=== PATIENT | female | born 1990 | race African-American/Black ===

== ENCOUNTER 2017-10-06 22:13 | Observation (INO) ==
[2017-10-06 22:36] LABS: Baso % (Auto) 0.3 % (0.0-2.0); Eos # (Auto) 0.1 th/mm3 (0.0-0.4); Eos % (Auto) 1.4 % (0.0-4.0); Hemoglobin 11.5 gm/dL (11.6-15.3); Lymph % (Auto) 31.8 % (9.0-44.0); Mean Corpuscular Volume 78.7 fL (80.0-100.0); Mean Platelet Volume 8.9 fL (7.0-11.0); Mono # (Auto) 0.4 th/mm3 (0.0-0.9); Mono % (Auto) 6.4 % (0.0-8.0); Neut # (Auto) 3.7 th/mm3 (1.8-7.7); Neut % (Auto) 60.1 % (16.0-70.0); Platelet Count 261 th/mm3 (150-450); Red Blood Count 4.44 mil/mm3 (4.00-5.30); Red Cell Distribution Width 14.9 % (11.6-17.2); White Blood Count 6.2 th/mm3 (4.0-11.0)
--- NOTE | 2017-10-06 22:39 | CT ---
EXAM DATE: 10/06/2017 10:32 PM EDT AGE/SEX: 27 years / Female INDICATIONS: Stroke alert; left numbness and right side headache. CLINICAL DATA: This is the patient's initial encounter. Patient reports that signs and symptoms have been present for 1 day and indicates a pain score of 5/10. MEDICAL/SURGICAL HISTORY: None. None. RADIATION DOSE: 39.01 CTDI (mGy) COMPARISON: No prior exams available for comparison. Report was called to Dr. Barraza at 10:35 PM. TECHNIQUE: CT of the head without contrast. Using automated exposure control and adjustment of the mA and/or kV according to patient size, radiation dose was kept as low as reasonably achievable to ob tain optimal diagnostic quality images. DICOM format image data is available electronically for revi ew and comparison. FINDINGS: Cerebrum: The ventricles are normal for age. No evidence of midline shift, mass lesion, hemorrhage or acute infarction. No extraaxial fluid collections are seen. Posterior Fossa: The cerebellum and brainstem are intact. The 4th ventricle is midline. The cerebe llopontine angle is unremarkable. Extracranial: The visualized portion of the orbits is intact. Skull: The calvaria is intact. No evidence of skull fracture. CONCLUSION: 1. Negative stroke alert CT brain. Electronically signed by: Raffy Mercado MD 10/06/2017 10:38 PM EDT
--- NOTE | 2017-10-06 22:45 | ED ---
HPI General Chief complaint: Stroke Alert Stated complaint: EVAC/Stroke Alert Time Seen by Provider: 10/06/17 22:26 History of Present Illness HPI narrative: 27-year-old female presents to the emergency department from home by EMS sport after being evaluated having had a syncopal episode just prior to arrival to the emergency department was reported no head injury neck injury or back injury. Per secondary english teacher report patient was already placed on stretcher prior to their arrival but reportedly with assistance walked a few steps to the stretcher with assistance by fire department personnel. Patient was reportedly cleaning and then had a syncopal episode. Patient was found lying on her left side complaining of right sided numbness and tingling affecting the right upper extremity the right side of the torso/trunk and the right lower extremity. Patient does not complain of any weakness of the upper extremity or lower extremity. Patient does complain of right-sided headache but denies neck pain or back pain. Left side is unaffected. No prior history of similar paresthesias. No report of migraines. Patient does take prescription Fen/Phen for weight loss 6 months. Patient does not take control pills. No known cardiac disease hypertension or dyslipidemia. Patient is not diabetic. Patient was transported in sinus rhythm. Patient here is awake and alert and oriented to person place time and events and able to relay that she does have a headache she does not have visual disturbance does not feel confused does not have difficulty with her speech does not have head pain but does have a headache does not have neck pain or back pain does complain of right sided numbness and tingling that is midline and rightward as well as feels normal on her left side left torso left upper extremity and left lower extremity feel normal while her right torso/trauma right upper extremity and right lower extremity have numbness and seen EMS was called at 2141 stroke alert was called in the [place] [address] at 22:22 Related Data Home Medications Medication Instructions Recorded Confirmed phentermine 37.5 mg PO DAILY 10/07/17 10/07/17 Allergies Allergy/AdvReac Type Severity Reaction Status Date / Time No Known Allergies AdvReac Unknown Uncoded 02/06/17 08:40 [facility] Medical History Medical History Hx of headache (Acute) Surgical History Surgical History Hx of section (Acute) Social History Social History Substance History: No History of Abuse Second Hand Smoke Exposure: Yes Smoking Status: Never smoker How Often Do You Have a Drink Containing Alcohol: Monthly or less Recent Travel in [place] within the Last 8 Weeks: No Recent Out of Country Travel within the Last 8 Weeks: No Course Initial Documented Vital Signs Temperature 98 F 10/06/17 22:15 Pulse Rate 97 H 10/06/17 22:15 Respiratory Rate 20 10/06/17 22:15 Blood Pressure 141/90 H 10/06/17 22:15 Pulse Oximetry 10 L 10/06/17 22:15 Last Documented Vital Signs Temperature 98 F 10/06/17 22:15 Pulse Rate 73 10/07/17 00:27 Respiratory Rate 20 10/07/17 00:28 Blood Pressure 128/80 10/07/17 00:27 Pulse Oximetry 98 10/06/17 22:30 NIH Stroke Scale NIH Stroke Scale Level of Consciousness: 0-Alert Orientation Questions: 0-Answers both correct Responds to Commands: 0-Both tasks correct Gaze Eye Movement: 0-Horizontal movement WNL Visual Burris: 0-No visual field defect Facial Movement: 0-Normal Motor Functions Arm LEFT: 0-No drift Motor Functions Arm RIGHT: 0-No drift Motor Functions Leg LEFT: 0-No drift Motor Functions Leg RIGHT: 0-No drift Limb Ataxia: 0-No ataxia Sensory Loss: 1-Mild sensory loss Best Language: 0-Normal Articulation: 0-Normal Extinction or Inattention Sensory: 0-Absent Total: 1 Medical Decision Making [facility] Narrative Medical decision making narrative: Stat call to neurologist Dr Pichardo --no tpa 22 :22 patient en route to [address] Radiologist called CT as negative @ 10:35 @ 10:51 patient sent back to CT for CT cervical spine @ 23:35 patient is symptomatically improved paresthesias are now limited to her digits of the right hand and right foot with persistent tingling that has lessened in intensity torso is no longer having any paresthesias or tingling upper arm and forearm are spared of any tingling or paresthesias and upper leg and lower leg of the right lower extremity are spared any paresthesias or tingling. Case discussed with on-call [place] GIL --obs Per Dr Pichardo MR normal --suspects migraine variant; patient is informed of imaging results and plan for observation admission with which she is agreeable Differential Diagnosis Differential Diagnosis: CVA, TIA, migraine variant, ICH, cervical spine injury, neuromuscular disorder, Medical Records Medical records reviewed: Yes I reviewed the patient's medical records. Lab Data Lab results reviewed: Yes I reviewed the patient's lab results. Result diagrams: 10/06/17 22:10 Lab Results 10/06/17 10/06/17 10/06/17 Range/Units 22:10 22:10 22:43 WBC 6.2 (4.0-11.0) th/mm3 RBC 4.44 (4.00-5.30) mil/mm3 Hgb 11.5 L (11.6-15.3) gm/dL POC Hgb (Calc) 11.2 L (11.6-15.3) g/dL Hct 35.0 (35.0-46.0) % POC Hct 33.0 L (35-46.0) % MCV 78.7 L (80.0-100.0) fL MCH 26.0 L (27.0-34.0) pg MCHC 33.0 (32.0-36.0) % RDW 14.9 (11.6-17.2) % Plt Count 261 (150-450) th/mm3 MPV 8.9 (7.0-11.0) fL Neut % (Auto) 60.1 (16.0-70.0) % Lymph % (Auto) 31.8 (9.0-44.0) % Wells % (Auto) 6.4 (0.0-8.0) % Eos % (Auto) 1.4 (0.0-4.0) % Baso % (Auto) 0.3 (0.0-2.0) % Neut # (Auto) 3.7 (1.8-7.7) th/mm3 Lymph # (Auto) 2.0 (1.0-4.8) th/mm3 Wells # (Auto) 0.4 (0.0-0.9) th/mm3 Eos # (Auto) 0.1 (0.0-0.4) th/mm3 Baso # (Auto) 0.0 (0.0-0.2) th/mm3 WBC Differential . Differential Comment Auto diff final PT 10.6 (9.8-11.6) sec INR 1.0 Ratio APTT 21.7 L (24.3-30.1) sec Fibrinogen 265 (227-377) mg/dL POC Sodium 140 (137-144) mmol/L POC Potassium 3.4 L (3.6-5.0) mmol/L POC Chloride 103 (102-111) mmol/L POC BUN 3 L (5-21) mg/dL POC Creatinine 0.8 (0.6-1.3) mg/dL POC Glucose 79 (68-110) mg/dL Total Creatine Kinase 169 (26-192) U/L Troponin I Less than 0.02 L (0.02-0.05) ng/mL Blood Type Blood Type Recheck Antibody Screen 10/06/17 Range/Units 22:43 WBC (4.0-11.0) th/mm3 RBC (4.00-5.30) mil/mm3 Hgb (11.6-15.3) gm/dL POC Hgb (Calc) (11.6-15.3) g/dL Hct (35.0-46.0) % POC Hct (35-46.0) % MCV (80.0-100.0) fL MCH (27.0-34.0) pg MCHC (32.0-36.0) % RDW (11.6-17.2) % Plt Count (150-450) th/mm3 MPV (7.0-11.0) fL Neut % (Auto) (16.0-70.0) % Lymph % (Auto) (9.0-44.0) % Wells % (Auto) (0.0-8.0) % Eos % (Auto) (0.0-4.0) % Baso % (Auto) (0.0-2.0) % Neut # (Auto) (1.8-7.7) th/mm3 Lymph # (Auto) (1.0-4.8) th/mm3 Wells # (Auto) (0.0-0.9) th/mm3 Eos # (Auto) (0.0-0.4) th/mm3 Baso # (Auto) (0.0-0.2) th/mm3 WBC Differential Differential Comment PT (9.8-11.6) sec INR Ratio APTT (24.3-30.1) sec Fibrinogen (227-377) mg/dL POC Sodium (137-144) mmol/L POC Potassium (3.6-5.0) mmol/L POC Chloride (102-111) mmol/L POC BUN (5-21) mg/dL POC Creatinine (0.6-1.3) mg/dL POC Glucose (68-110) mg/dL Total Creatine Kinase (26-192) U/L Troponin I (0.02-0.05) ng/mL Blood Type O Positive Blood Type Recheck Not needed Antibody Screen Negative Imaging Data Radiologist's impression: Chest X-Ray 10/06/17 22:22 CONCLUSION: The lungs are clear. Head CT 10/06/17 22:22 CONCLUSION: 1. Negative stroke alert CT brain. Head CTA 10/06/17 22:22 CONCLUSION: 1. Negative CTA of the lummi of [place] CTA 10/06/17 22:22 CONCLUSION: 1. Negative carotid CTA. Cervical Spine CT 10/06/17 22:49 CONCLUSION: 1. Straightening of the cervical lordosis without evidence of compression deformity or spondylolisthesis. 2. Presence or absence of disc disease cannot be assessed at C4-C7 due to patient's body habitus. Head MRI 10/06/17 22:59 CONCLUSION: 1. Unremarkable MRI of the brain. Negative for infarct. Findings discussed by telephone with Dr. Pichardo. ECG Data Interpretation: EKG normal sinus rhythm rate [address] elevation injury pattern or ectopy noted Discharge Plan Discharge Disposition Patient Disposition: 30 Still Patient Discharge Condition Condition: Stable Discharge Details Diagnosis: TIA (transient ischemic attack) Physicians Team ED Provider: Ashia Barraza Primary Care Provider: UNKNOWN, Attending Provider: Rufina Sarmiento Other Providers: Ever Hwang Status ED Status: Admitted Observation Patient
--- NOTE | 2017-10-06 22:56 | CT ---
EXAM DATE: 10/06/2017 10:43 PM EDT AGE/SEX: 27 years / Female INDICATIONS: Stroke alert; left numbness and right side headache. CLINICAL DATA: This is the patient's initial encounter. Patient reports that signs and symptoms have been present for 1 day and indicates a pain score of 6/10. MEDICAL/SURGICAL HISTORY: None. None. RADIATION DOSE: 28.51 CTDI (mGy) ; Combined studies COMPARISON: [facility], CTA NECK W CONTRAST W 3D, 10/06/2017. . TECHNIQUE: Volumetric scanning was performed using a multi-row detector CT scanner during bolus infu naomi of 100 ml Visipaque 320 (iodixanol) nonionic water-soluble contrast as a cumulative dose for mu ltiple exams. The data was post processed with a variety of visualization algorithms including full volume maximum intensity projection, multi-planar sliding thin slab reformation, curved planar refor mation, and surface rendering techniques. Using automated exposure control and adjustment of the mA and/or kV according to patient size, radiation dose was kept as low as reasonably achievable to obtai n optimal diagnostic quality images. DICOM format image data is available electronically for review and comparison. FINDINGS: There is excellent visualization of the major intracranial arteries out to the second-order branch ve ssels. There is no evidence for aneurysm, vessel truncation or stenosis, and no evidence for vascula r malformation. CONCLUSION: 1. Negative CTA of the [place] Electronically signed by: Raffy Mercado MD 10/06/2017 10:55 PM EDT
[2017-10-06 23:00] LABS: Creatine Kinase 169 U/L (26-192)
--- NOTE | 2017-10-06 23:03 | XR ---
EXAM DATE: 10/06/2017 10:45 PM EDT AGE/SEX: 27 years / Female INDICATIONS: . Stoke alert CLINICAL DATA: This is the patient's initial encounter. Patient reports that signs and symptoms have been present for 1 day and indicates a pain score of Nonresponsive. MEDICAL/SURGICAL HISTORY: Non-responsive. Non-responsive. COMPARISON: [facility] [place]ST SINGLE AP, 04/14/2012. . FINDINGS: A single AP view of the chest demonstrates the lungs to be symmetrically aerated without evidence of mass, infiltrate or effusion. No evidence of pneumothorax. The cardiomediastinal contours are unremar kable. Osseous structures are intact. CONCLUSION: The lungs are clear. Electronically signed by: Raffy Mercado MD 10/06/2017 11:01 PM EDT
--- NOTE | 2017-10-06 23:11 | CT ---
EXAM DATE: 10/06/2017 10:51 PM EDT AGE/SEX: 27 years / Female INDICATIONS: Stroke alert; left numbness and right side headache. CLINICAL DATA: This is the patient's initial encounter. Patient reports that signs and symptoms have been present for 1 day and indicates a pain score of 6/10. MEDICAL/SURGICAL HISTORY: None. None. RADIATION DOSE: 28.51 CTDI (mGy) ; Combined studies COMPARISON: No prior exams available for comparison. TECHNIQUE: Volumetric scanning was performed using a multirow detector CT scanner during bolus infus ion of 100 ml Visipaque 320 (iodixanol) nonionic water-soluble contrast as a cumulative dose for mul tiple exams. The data was postprocessed with a variety of visualization algorithms including full-v olume maximum intensity projection, multiplanar sliding thin-slab reformation, curved-planar reformat ion, and surface-rendering techniques. Using automated exposure control and adjustment of the mA and /or kV according to patient size, radiation dose was kept as low as reasonably achievable to obtain o ptimal diagnostic quality images. DICOM format image data is available electronically for review and comparison. FINDINGS: Aortic Arch: There is a three-vessel origin of the great vessels from the aorta. No evidence of ost ial narrowing Right Carotid: The common carotid artery is intact. The carotid bulb has a normal configuration wit hout ulceration or narrowing. The internal carotid artery lumen is smooth without stenosis. The ext ernal carotid artery is intact. Left Carotid: The common carotid artery is intact. The carotid bulb has a normal configuration with out ulceration or narrowing. The internal carotid artery lumen is smooth without stenosis. The exte rnal carotid artery is intact. Vertebrals: The left vertebral artery is larger than the right; both vessels are patent. No stenoti c lesions are seen. Elevated flow velocities and ICA/CCA ratios have been found to correlate with increased degrees of ve ssel stenosis, calculated as percentage of diameter relative to a normal segment of distal ICA/CCA. CONCLUSION: 1. Negative carotid CTA. Electronically signed by: Raffy Mercado MD 10/06/2017 11:09 PM EDT
[2017-10-06] MEDS ORDERED: Aspirin 325 MG Tablet PO ONE (23:13)
[2017-10-06] MEDS: Sod Chloride 0.9% Inj 1,000 ML IV.CONT SCH (23:15)
--- NOTE | 2017-10-06 23:15 | CT ---
EXAM DATE: 10/06/2017 11:05 PM EDT AGE/SEX: 27 years / Female INDICATIONS: Trauma; fall. CLINICAL DATA: This is the patient's initial encounter. Patient reports that signs and symptoms have been present for 1 day and indicates a pain score of 5/10. MEDICAL/SURGICAL HISTORY: None. None. RADIATION DOSE: . CTDI (mGy) ; Reconstructed from previous dataset, no dose COMPARISON: No prior exams available for comparison. TECHNIQUE: Contiguous axial images were obtained using helical multi-row detector technique. The vo lumetric data was post-processed with multiplanar reconstruction in oblique axial, sagittal and coron al planes. Using automated exposure control and adjustment of the mA and/or kV according to patient s ize, radiation dose was kept as low as reasonably achievable to obtain optimal diagnostic quality cyndy ges. DICOM format image data is available electronically for review and comparison. FINDINGS: There is straightening of the cervical lordosis. Vertebral body height is maintained. Image quality i s compromised by patient's body habitus. No compression deformities seen. No evidence of spondylolist hesis. The atlantoaxial articulation is intact. No fractures seen. The neural foramina are patent. No significant osteophytes. CONCLUSION: 1. Straightening of the cervical lordosis without evidence of compression deformity or spondylolisth esis. 2. Presence or absence of disc disease cannot be assessed at C4-C7 due to patient's body habitus. Electronically signed by: Raffy Mercado MD 10/06/2017 11:14 PM EDT
[2017-10-06 23:28] LABS: Activated Partial Thrombo Time 21.7 sec (24.3-30.1); Prothrombin Time 10.6 sec (9.8-11.6)
--- NOTE | 2017-10-07 00:15 | MR ---
EXAM DATE: 10/06/2017 11:56 PM EDT AGE/SEX: 27 years / Female INDICATIONS: Stroke. Right sided weakness. CLINICAL DATA: This is the patient's initial encounter. Patient reports that signs and symptoms have been present for 1 day and indicates a pain score of 6/10. MEDICAL/SURGICAL HISTORY: None. section. COMPARISON: No prior exams available for comparison. TECHNIQUE: Multiplanar, multisequence examination of the brain was performed without contrast. FINDINGS: There is no intracranial mass. No hemorrhage. No midline shift. No hydrocephalus. No recent infarct is identified on the diffusion weighted images. No sellar mass. No abnormal extra-a xial fluid. CONCLUSION: 1. Unremarkable MRI of the brain. Negative for infarct. Findings discussed by telephone with Dr. Jed davis. Electronically signed by: Herb Forrester MD 10/07/2017 12:14 AM EDT
[2017-10-07 01:21] LABS: Bilirubin,Urine Negative (Negative); Clarity,Urine Clear (Clear); Color,Urine Yellow (Yellw/Straw); Glucose,Urine (UA) Negative (Negative); Leukocyte Esterase,Urine Small (Negative); Mucus,Urine Few /lpf (Occasional); Nitrite,Urine Negative (Negative); Specific Gravity,Urine 1.045 (1.002-1.035); Squamous Epithelial Cell,Urine 5 /hpf (0-5)
[2017-10-07] MEDS ORDERED: Temazepam 15 MG Capsule PO PRN (01:52)
[2017-10-07] MEDS ORDERED: Acetaminophen 325 MG Tablet PO PRN (01:52)
[2017-10-07] MEDS ORDERED: Bisacodyl 10 MG Supp RECTAL PRN (01:52)
[2017-10-07] MEDS ORDERED: Dextrose 50% in Water 50 ML Vial IV.PUSH PRN (01:55)
[2017-10-07] MEDS: Insulin NovoLOG Aspart Correctional Sugar Inj SQ SCH ×3 (02:25→12:45)
--- NOTE | 2017-10-07 02:58 | P.HP ---
History of Present Illness Service: [facility] Primary Care Physician: UNKNOWN Chief Complaint: Unresponsiveness History of Present Illness: 27-year-old female with a past medical history significant for prediabetes presents to the emergency department after suffering a syncopal event. The event was unwitnessed and the patient was found by her brother on the kitchen floor. It is unclear if there was any seizure-like activity prior to her being unresponsive. The patient's mother reports that the patient was unresponsive for approximately 5 minutes and then she regained consciousness. The patient has no memory of the event. Following the event, the patient complained of right-sided chest pain with numbness of her right upper and lower extremities. Since her arrival in the emergency department the numbness has slowly subsided and is now only present in the fingers of her right hand. Her chest pain has completely resolved. The patient denies any shortness of breath. No abdominal pain. No nausea/vomiting/diarrhea. No fevers/chills. Inpatient Certification: I certify that the inpatient services were ordered in accordance with Medicare regulations governing the order. This includes certification that hospital inpatient services are reasonable and necessary and in the case of services not specified as inpatient-only under 42 CFR 419.22(n), that they are appropriately provided as inpatient services in accordance to with the 2-midnight benchmark under 43 CFR 412.3(e) Review of Systems All other systems reviewed negative except as stated in HPI PMFSH - History History Provided By: Patient - Medical History Medical History: Medical History (Last Updated 10/06/17 @ 23:11 by Fabiola Hatch) Hx of headache - Surgical History Surgical History: Surgical History (Last Updated 10/06/17 @ 23:11 by Fabiola Hatch) Hx of section - Tobacco History Second Hand Smoke Exposure: Yes Smoking Status: Never smoker - Alcohol History How Often Do You Have a Drink Containing Alcohol: Monthly or less - Substance Use History Substance History: No History of Abuse - Travel History Recent Travel in the [place] Within the Last 8 Weeks: No Recent Travel Out of the Country Within the Last 8 Weeks: No - Immunization History Tetanus Immunization: <5 Years Hx Influenza Vaccine This Season: Yes Medications and Allergies Active Medications: Active Medications Acetaminophen (Tylenol) 650 mg PO Q4H PRN PRN Reason: Temp > 100.4 Al Hydroxide/Mg Hydroxide (Milk Of Magnesia Liq) 30 ml PO Q12H PRN PRN Reason: Mild Constipation Bisacodyl (Dulcolax Supp) 10 mg RECTAL DAILY PRN PRN Reason: SEVERE CONSITIPATION Dextrose (D50w Vial) 50 ml IV.PUSH UNSCH PRN PRN Reason: PER HYPOGLYCEMIA PROTOCOL Glucagon (Glucagon Inj) 1 mg OTHER PRN PRN PRN Reason: for Hypoglycemia Protocol Sodium Chloride (Ns Inj) 1,000 mls @ 70 mls/hr IV.CONT .[id number] NAIF Last Admin: 10/06/17 23:15 Dose: 70 mls/hr Insulin Aspart (Novolog Insulin Correctional Sugar Inj) 0 unit SQ ACHS AND 3AM NAIF; Protocol Last Admin: 10/07/17 02:25 Dose: Not Given Lactulose (Lactulose Liq) 30 ml PO DAILY PRN PRN Reason: SEVERE CONSITIPATION Ondansetron HCl (Zofran Inj) 4 mg IV.PUSH Q6H PRN PRN Reason: NAUSEA OR VOMITING Senna/Docusate Sodium (Raysa-Colace) 1 tab PO BID [facility] Sennosides (Senokot) 17.2 mg PO Q12H PRN PRN Reason: Moderate Constipation Temazepam (Restoril) 15 mg PO HS PRN PRN Reason: INSOMNIA Allergies Allergy/AdvReac Type Severity Reaction Status Date / Time No Known Allergies AdvReac Unknown Uncoded 02/06/17 08:40 Home Medications Medication Instructions Recorded Confirmed Type phentermine 37.5 mg PO DAILY 10/07/17 10/07/17 History Exam Vital signs: Vital Signs 10/06/17 22:15 10/06/17 22:30 10/07/17 00:27 Temperature 98 F Pulse Rate 97 H 91 H 73 Respiratory Rate 20 20 20 Blood Pressure 141/90 H 137/76 128/80 Pulse Oximetry 10 L 98 10/07/17 00:28 10/07/17 00:59 10/07/17 02:20 Temperature 97.3 F L 98.6 F Pulse Rate 74 78 Respiratory Rate 20 16 20 Blood Pressure 118/71 121/75 Pulse Oximetry 100 100 Intake & Output 10/06/17 10/06/17 10/07/17 06:59 18:59 06:59 Weight 121.8 kg Narrative: Gen.: No acute distress Head: Normocephalic. Atraumatic. EENT: Pupils equal round and reactive to light. Nose without drainage. Airway intact. Throat without injection. Cardiovascular: Regular rate and rhythm. No murmurs, rubs or gallops. Respiratory: Lungs clear to auscultation bilaterally. No wheezes or rhonchi. Abdomen: Soft, nontender, nondistended. No peritoneal signs. Musculoskeletal: No gross deformities. No edema. Skin: No obvious rashes or erythema. Neuro: Cranial nerves II through XII intact. Strength 5/5 throughout. Patient reports numbness and tingling on the fingers of her right hand. Psych: Appropriate mood and affect Results - Labs CBC & Chem 7: 10/06/17 22:10 Labs: Laboratory Results - last 24 hr 10/06/17 10/06/17 10/06/17 22:10 22:10 22:43 WBC 6.2 RBC 4.44 Hgb 11.5 L POC Hgb (Calc) 11.2 L Hct 35.0 POC Hct 33.0 L MCV 78.7 L MCH 26.0 L MCHC 33.0 RDW 14.9 Plt Count 261 MPV 8.9 Neut % (Auto) 60.1 Lymph % (Auto) 31.8 [place] % (Auto) 6.4 Eos % (Auto) 1.4 Baso % (Auto) 0.3 Neut # (Auto) 3.7 Lymph # (Auto) 2.0 [place] # (Auto) 0.4 Eos # (Auto) 0.1 Baso # (Auto) 0.0 WBC Differential . Differential Comment Auto diff final PT 10.6 INR 1.0 APTT 21.7 L Fibrinogen 265 POC Sodium 140 POC Potassium 3.4 L POC Chloride 103 POC BUN 3 L POC Creatinine 0.8 POC Glucose 79 Total Creatine Kinase 169 Troponin I Less than 0.02 L Urine Color Urine Clarity Urine pH Ur Specific [place] Urine Protein Urine Glucose (UA) Urine Ketones Urine Occult Blood Urine Nitrate Urine Bilirubin Urine Urobilinogen Ur Leukocyte Esterase Urine RBC Urine WBC Ur Squamous Epith Cells Urine Mucus Micro UA Comment Urine Culture Comments Blood Type Blood Type Recheck Antibody Screen 10/06/17 10/07/17 22:43 00:45 WBC RBC Hgb POC Hgb (Calc) Hct POC Hct MCV MCH MCHC RDW Plt Count MPV Neut % (Auto) Lymph % (Auto) [place] % (Auto) Eos % (Auto) Baso % (Auto) Neut # (Auto) Lymph # (Auto) [place] # (Auto) Eos # (Auto) Baso # (Auto) WBC Differential Differential Comment PT INR APTT Fibrinogen POC Sodium POC Potassium POC Chloride POC BUN POC Creatinine POC Glucose Total Creatine Kinase Troponin I Urine Color Yellow Urine Clarity Clear Urine pH 5.0 Ur Specific [place] 1.045 H Urine Protein Negative Urine Glucose (UA) Negative Urine Ketones Negative Urine Occult Blood Large H Urine Nitrate Negative Urine Bilirubin Negative Urine Urobilinogen Less than 2 Ur Leukocyte Esterase Small H Urine RBC 3 Urine WBC 5 Ur Squamous Epith Cells 5 Urine Mucus Few H Micro UA Comment Culture not ind Urine Culture Comments Culture not ind Blood Type O Positive Blood Type Recheck Not needed Antibody Screen Negative - Imaging Impressions Chest X-Ray 10/06/17 22:22 CONCLUSION: The lungs are clear. Head CT 10/06/17 22:22 CONCLUSION: 1. Negative stroke alert CT brain. Head CTA 10/06/17 22:22 CONCLUSION: 1. Negative CTA of the [place] CTA 10/06/17 22:22 CONCLUSION: 1. Negative carotid CTA. Cervical Spine CT 10/06/17 22:49 CONCLUSION: 1. Straightening of the cervical lordosis without evidence of compression deformity or spondylolisthesis. 2. Presence or absence of disc disease cannot be assessed at C4-C7 due to patient's body habitus. Head MRI 10/06/17 22:59 CONCLUSION: 1. Unremarkable MRI of the brain. Negative for infarct. Findings discussed by telephone with Dr. Pichardo. Jarred VTE Risk Assessment Caprini VTE Risk Assessment: No/Low Risk (score <= 1) Caprini Risk Assessment Model: Point Value = 1 Point Value = 2 Point Value = 3 Point Value = 5 Age 41-60 Minor surgery BMI > 25 kg/m2 Swollen legs Varicose veins or History of unexplained or recurrent spontaneous Oral contraceptives or hormone replacement Sepsis (< 1 month) Serious lung disease, including pneumonia (< 1 month) Abnormal pulmonary function Acute myocardial infarction Congestive heart failure (< 1 month) History of inflammatory bowel disease Medical patient at bed rest Age 61-74 Arthroscopic surgery Major open surgery (> 45 min) Laparoscopic surgery (> 45 min) Malignancy Confined to bed (> 72 hours) Immobilizing plaster cast Central venous access Age >= 75 History of VTE Family history of VTE Factor V Leiden Prothrombin [id number] Lupus anticoagulant Anticardiolipin antibodies Elevated serum homocysteine Heparin-induced thrombocytopenia Other congenital or acquired thrombophilia Stroke (< 1 month) Elective arthroplasty Hip, pelvis, or leg fracture Acute spinal cord injury (< 1 month) Prophylaxis Regimen: Total Risk Factor Score Risk Level Prophylaxis Regimen 0-1 Low Early ambulation 2 Moderate Order ONE of the following: *Sequential Compression Device (SCD) *Heparin 5000 units SQ BID 3-4 Higher Order ONE of the following medications: *Heparin 5000 units SQ TID *Enoxaparin/Lovenox 40 mg SQ daily (WT < 150 kg, CrCl > 30 mL/min) *Enoxaparin/Lovenox 30 mg SQ daily (WT < 150 kg, CrCl > 10-29 mL/min) *Enoxaparin/Lovenox 30 mg SQ BID (WT < 150 kg, CrCl > 30 mL/min) AND/OR *Sequential Compression Device (SCD) 5 or more Highest Order ONE of the following medications: *Heparin 5000 units SQ TID (Preferred with Epidurals) *Enoxaparin/Lovenox 40 mg SQ daily (WT < 150 kg, CrCl > 30 mL/min) *Enoxaparin/Lovenox 30 mg SQ daily (WT < 150 kg, CrCl > 10-29 mL/min) *Enoxaparin/Lovenox 30 mg SQ BID (WT < 150 kg, CrCl > 30 mL/min) AND *Sequential Compression Device (SCD) Assessment and Plan - Plan Assessment/plan: 1. Syncope/? seizure/? TIA Head CT, head MRI, head and neck CTA and cervical spine CT all negative for acute process Neurology consulted, appreciate recommendations Cannot rule out seizure activity, EEG pending Echo pending 2. Prediabetes Sliding-scale insulin Monitor blood glucose FEN N.p.o. Electrolytes: Monitor and replete as needed NS at 70 cc/hour
[2017-10-07 06:27] LABS: Creatine Kinase 129 U/L (26-192)
[2017-10-07] MEDS: Senna/Docusate Sodium 8.6/50 MG Tablet PO SCH (08:05)
[2017-10-07 12:16] LABS: Creatine Kinase 153 U/L (26-192)
--- NOTE | 2017-10-07 14:01 | MB ---
cc: Jourdan Pichardo MD, PhD DATE: 10/07/2017 REASON FOR CONSULTATION: Stroke alert. HISTORY OF PRESENT ILLNESS: Ms. Farnsworth is a very pleasant 27-year-old female who yesterday had an episode where she lost consciousness with a syncopal episode. No seizure-like activity was noted. There was no injury to her head or neck. When she awoke, she had a right-sided severe headache and she noted numbness and tingling in the right side of her body involving the arm, torso and leg, but not the face. There were no motor deficits. She had no speech changes. She does not take control pills or any other medication except for Phen-Fen, which she has been taking for 6 months for weight loss. Stroke alert was called yesterday evening. I spoke with Dr. Barraza. CT of the brain was negative. CT angiogram of the head and neck was also normal. The patient was improving with her symptoms, again had no motor deficits at all, just numbness which was improving. We did an MRI of the brain last night, which was normal with no sign of acute stroke. I recommended against IV TPA given the fact that she had only sensory deficits, there is no definite stroke on the MRI, and she was showing rapid improvement. She has continued to improve. At the present time notices only numbness in her hand and right foot. She has no prior history of stroke. No history of migraine. PAST MEDICAL HISTORY: Otherwise unremarkable. CURRENT MEDICATIONS: 1. Tylenol. 2. Dulcolax. 3. Lactulose. 4. Zofran p.r.n. 5. Senokot. 6. Restoril. 7. Aspirin was given in the ER last night 325 mg. NEUROLOGICAL EXAMINATION: VITAL SIGNS: Blood pressure is 128/83, pulse is 80, respiratory rate is 18, temperature 98 degrees. HIGHER CORTICAL FUNCTIONS: Normal. CRANIAL NERVES: 2-12 are normal. MOTOR EXAM: She has got 5/5 strength of all groups in both upper and lower extremities. There is no drift. Fine motor skills are normal. Reflexes are symmetric. SENSORY EXAM: Diminished distally in the right arm, mainly at the forearm and wrist area, to soft touch as well as the distal right lower extremity. IMAGING STUDIES: As noted above. LABORATORY DATA: White count of 6200; hemoglobin 11.5; hematocrit 35%; platelet count is 261,000. PT 10.6, INR 1, aPTT 21.7. Sodium is 140, potassium 3.4, chloride 103, BUN is 3, creatinine 0.8, glucose 79. CPK 169. ASSESSMENT: Transient right-sided numbness, which is improving. There is no sign of stroke on the MRI. This could be a migraine variant which I suspect it most likely is. Rule out transient ischemic attack. Rule out cervical spondylosis with cord involvement. RECOMMENDATION: We will proceed with an MRI of the cervical spine. Also, echocardiogram. Check labs for hypercoagulable state. Consider TERRA. I also recommend that she stop the Phen-Fen. Jourdan Pichardo MD, PhD JUVENAL/MELQUIADES , 01:32 PM , 02:00 PM
[2017-10-07] MEDS: Sod Chloride 0.9% Inj 1,000 ML IV.CONT SCH (16:08)
--- NOTE | 2017-10-07 16:15 | MB ---
cc: Todd Sloan MD DATE: 10/07/2017 HISTORY OF PRESENT ILLNESS: Lili is a 19-year-old lady. She was admitted after having a syncopal event with no prodrome. She has been evaluated by Dr. Pichardo was recommended TERRA. The patient currently denies chest pain, fevers, chills, cough, GI or bleeding, PND, orthopnea. She did have syncope and dizziness. PAST MEDICAL HISTORY: As per History of Present Illness. ALLERGIES: NONE. SOCIAL HISTORY: Denies tobacco use, rarely drinks alcohol. MEDICATIONS: Aspirin 325 daily. PHYSICAL EXAMINATION: VITAL SIGNS: Temperature 98.6, pulse 78, blood pressure 121/75, respiratory rate 20. GENERAL: She is alert and oriented x3, in no acute distress. NECK: Supple. No JVD. No bruit. CARDIOVASCULAR: S1, S2. No murmurs, rubs, gallops. LUNGS: Clear to auscultation bilaterally. ABDOMEN: Soft, nontender, nondistended with positive bowel sounds. EXTREMITIES: No lower extremity edema. EKG: Normal sinus rhythm at 82 beats per minute, otherwise normal. IMAGING STUDIES: Chest x-ray: Lungs are clear. Head CT: Negative for stroke. CT brain, head CTA: Negative CT of the [place] CTA: Negative carotid CTA. Cervical spine CT: Straightening of the cervical lordosis without evidence of compression deformity or spondylolisthesis. The presence or absence of disk disease cannot be assessed at C4-7 due to the patient's body habitus. Head MRI unremarkable. MRI of the brain negative for infarct. LABORATORY DATA: White count is 6.2, hemoglobin 11.5, hematocrit 35.0, platelet count 261. INR 1.0. Sodium 140, potassium 3.4, BUN 3, creatinine 0.8. Troponin less than 0.02 x3. DIAGNOSES: 1. Syncope with no prodrome. The patient has no contraindications to transesophageal echocardiogram at the current time. PLAN: I will plan to try to schedule this tomorrow, 10/08/2017. Todd Sloan MD AWAyan/SB , 03:53 PM , 04:13 PM
--- NOTE | 2017-10-07 20:53 | ECG ---
Date Performed: 10/06/2017 Time Performed: 22:20:37 PTAGE: 27 years EKG: Sinus rhythm POSSIBLE LEFT ATRIAL ENLARGEMENT BORDERLINE ECG NO PREVIOUS TRACING DOCTOR: Jason Bahena Interpretating Date/Time 10/07/2017 20:51:14
--- NOTE | 2017-10-07 21:21 | MG ---
cc: Ever Hwang MD, Mandeep MD EEG NUMBER [id number] Low-amplitude 10-20 microvolt beta activity noted in the background. Slow eye movements suggestive of drowsy state. Frontal slightly sharply contoured waveforms noted on epoch 22. Temporal sharp transients occurring in rhythmic fashion suggestive of EKG artifact. There was a high amplitude 3-4 Hz paroxysmal theta activity occurring, disorganized asynchronous background at times. Good EEG variability reactivity. Limited driving with photic stimulation. INTERPRETATION: Very mild encephalopathy, nonspecific changes in sleep state. Clinical correlation. MD HODAN Hanson/ , 09:05 PM , 09:20 PM
[2017-10-08 04:48] LABS: Baso % (Auto) 0.3 % (0.0-2.0); Eos # (Auto) 0.1 th/mm3 (0.0-0.4); Eos % (Auto) 3.2 % (0.0-4.0); Hematocrit 33.5 % (35.0-46.0); Hemoglobin 11.1 gm/dL (11.6-15.3); Lymph # (Auto) 1.6 th/mm3 (1.0-4.8); Lymph % (Auto) 34.7 % (9.0-44.0); Mean Corpuscular HGB Conc 33.2 % (32.0-36.0); Mean Corpuscular Hemoglobin 26.3 pg (27.0-34.0); Mean Corpuscular Volume 79.2 fL (80.0-100.0); Mean Platelet Volume 8.9 fL (7.0-11.0); Mono # (Auto) 0.4 th/mm3 (0.0-0.9); Mono % (Auto) 8.7 % (0.0-8.0); Neut # (Auto) 2.4 th/mm3 (1.8-7.7); Neut % (Auto) 53.1 % (16.0-70.0); Platelet Count 245 th/mm3 (150-450); Red Blood Count 4.22 mil/mm3 (4.00-5.30); White Blood Count 4.6 th/mm3 (4.0-11.0)
[2017-10-08] MEDS: Senna/Docusate Sodium 8.6/50 MG Tablet PO SCH ×3 (04:59→22:02)
[2017-10-08] MEDS: Sod Chloride 0.9% Inj 1,000 ML IV.CONT SCH ×2 (04:59→22:02)
[2017-10-08 05:08] LABS: Anion Gap 9 meq/L (5-15); Blood Urea Nitrogen 7 mg/dL (7-18); Calcium 8.7 mg/dL (8.5-10.1); Carbon Dioxide 25.3 meq/L (21.0-32.0); Chloride 108 meq/L (98-107); Glomerular Filtration Rate Greater Than 89 mL/min (>89); Glucose,Random 90 mg/dL (74-106); Potassium 3.7 meq/L (3.5-5.1); Sodium 142 meq/L (136-145)
--- NOTE | 2017-10-08 12:48 | P.PNCA ---
Subjective Interval history: asleep in nad Physical Exam Vital signs: Vital Signs 10/07/17 15:30 10/07/17 16:00 10/07/17 20:00 Temperature 98.6 F 98.1 F Pulse Rate 80 79 85 Respiratory Rate 20 16 16 Blood Pressure 117/74 120/68 125/67 Pulse Oximetry 100 100 100 10/07/17 23:46 10/08/17 04:00 10/08/17 07:29 Temperature 98.1 F 98.5 F 98.0 F Pulse Rate 73 78 62 Respiratory Rate 18 17 14 Blood Pressure 124/78 95/58 L 130/67 Pulse Oximetry 99 98 100 10/08/17 11:47 Temperature 98.1 F Pulse Rate 69 Respiratory Rate 14 Blood Pressure 124/77 Pulse Oximetry 100 Intake & Output 10/07/17 10/08/17 10/08/17 18:59 06:59 18:59 Intake Total 1000 / 1000 800 / 800 Balance 1000 / 1000 800 / 800 Weight 121 kg Intake: IV 1000 / 1000 NS Inj 1,000 ML @ 70 mls/hr IV. 1000 / 1000 CONT .[id number] [facility] Rx#:[id number] Oral 800 / 800 Other: # Voids 1 2 Date of Last Bowel Movement 10/06/17 10/06/17 Weight On Admission 121 kg Assessment and Plan - Assessment (1) TIA (transient ischemic attack) Code(s): G45.9 - Transient cerebral ischemic attack, unspecified Status: Acute - Attending Attestation 1.) TIA - unable to schedule TERRA today, will re attempt 10/09/17, d/w patient and nurse (1) TIA (transient ischemic attack) Qualifiers: Transient cerebral ischemia type: unspecified Qualified Code(s): G45.9 - Transient cerebral ischemic attack, unspecified
[2017-10-08] MEDS: Aspirin 325 MG Tablet PO SCH (13:24)
--- NOTE | 2017-10-08 16:23 | P.PNIM ---
Subjective Interval history: Patient denies any chest pain shortness of breath. Says she still feels little lightheaded when she stands up. Physical Exam Vital signs: Vital Signs 10/07/17 20:00 10/07/17 23:46 10/08/17 04:00 Temperature 98.1 F 98.5 F Pulse Rate 85 73 78 Respiratory Rate 16 18 17 Blood Pressure 125/67 124/78 95/58 L Pulse Oximetry 100 99 98 10/08/17 07:29 10/08/17 11:47 10/08/17 16:00 Temperature 98.0 F 98.1 F 97.9 F Pulse Rate 62 69 72 Respiratory Rate 14 14 14 Blood Pressure 130/67 124/77 119/77 Pulse Oximetry 100 100 100 Intake & Output 10/07/17 10/08/17 10/08/17 18:59 06:59 18:59 Intake Total 1000 / 1000 800 / 800 800 / 800 Balance 1000 / 1000 800 / 800 800 / 800 Weight 121 kg Intake: IV 1000 / 1000 800 / 800 NS Inj 1,000 ML @ 70 mls/hr IV. 1000 / 1000 800 / 800 CONT .[id number] [facility] Rx#:[id number] Oral 800 / 800 Other: # Voids 1 2 Date of Last Bowel Movement 10/06/17 10/06/17 10/06/17 Weight On Admission 121 kg Narrative: GENERAL: She is sitting in bed. Appears comfortable. Obese. SKIN: Warm and dry. HEAD: Normocephalic. EYES: No scleral icterus. No injection or drainage. NECK: Supple, trachea midline. No JVD or lymphadenopathy. CARDIOVASCULAR: Regular rate and rhythm without murmurs, gallops, or rubs. RESPIRATORY: Breath sounds equal bilaterally. No accessory muscle use. GASTROINTESTINAL: Abdomen soft, non-tender, nondistended. MUSCULOSKELETAL: No cyanosis, or edema. BACK: Nontender without obvious deformity. No CVA tenderness. Results - Labs CBC & Chem 7: 10/08/17 04:11 10/08/17 04:11 Laboratory Results - last 24 hr 10/08/17 10/08/17 10/08/17 04:11 04:11 06:19 WBC 4.6 RBC 4.22 Hgb 11.1 L Hct 33.5 L MCV 79.2 L MCH 26.3 L MCHC 33.2 RDW 15.0 Plt Count 245 MPV 8.9 Neut % (Auto) 53.1 Lymph % (Auto) 34.7 [place] % (Auto) 8.7 H Eos % (Auto) 3.2 Baso % (Auto) 0.3 Neut # (Auto) 2.4 Lymph # (Auto) 1.6 [place] # (Auto) 0.4 Eos # (Auto) 0.1 Baso # (Auto) 0.0 WBC Differential . Differential Comment Auto diff final Sodium 142 Potassium 3.7 Chloride 108 H Carbon Dioxide 25.3 Anion Gap 9 BUN 7 Creatinine 0.66 Estimated GFR Greater than 89 POC Glucose 89 Random Glucose 90 Calcium 8.7 Assessment and Plan - Plan //Syncope/? seizure/? TIA Head CT, head MRI, head and neck CTA and cervical spine CT all negative for acute process Neurology consulted, appreciate recommendations Cannot rule out seizure activity, EEG pending = We will check morning cortisol. Echo pendingdelayed today. Will be done tomorrow. Neurology and cardiology following. //Prediabetes Sliding-scale insulin Monitor blood glucose Discharge Planning: Pending cardiology and neurology clearance.
--- NOTE | 2017-10-08 17:37 | P.PNNEU ---
Subjective Subjective Comments: No acute events reported Still numb in right hand, but improving. No longer numb right leg Active Medications: Active Medications Acetaminophen (Tylenol) 650 mg PO Q4H PRN PRN Reason: Temp > 100.4 Al Hydroxide/Mg Hydroxide (Milk Of Magnesia Liq) 30 ml PO Q12H PRN PRN Reason: Mild Constipation Aspirin (Aspirin) 325 mg PO DAILY [facility] Last Admin: 10/08/17 13:24 Dose: 325 mg Bisacodyl (Dulcolax Supp) 10 mg RECTAL DAILY PRN PRN Reason: SEVERE CONSITIPATION Dextrose (D50w Vial) 50 ml IV.PUSH UNSCH PRN PRN Reason: PER HYPOGLYCEMIA PROTOCOL Glucagon (Glucagon Inj) 1 mg OTHER PRN PRN PRN Reason: for Hypoglycemia Protocol Sodium Chloride (Ns Inj) 1,000 mls @ 70 mls/hr IV.CONT .[id number] [facility] Last Infusion: 10/08/17 13:25 Dose: 0 mls/hr Lactulose (Lactulose Liq) 30 ml PO DAILY PRN PRN Reason: SEVERE CONSITIPATION Ondansetron HCl (Zofran Inj) 4 mg IV.PUSH Q6H PRN PRN Reason: NAUSEA OR VOMITING Senna/Docusate Sodium (Raysa-Colace) 1 tab PO BID [facility] Last Admin: 10/08/17 13:18 Dose: Not Given Sennosides (Senokot) 17.2 mg PO Q12H PRN PRN Reason: Moderate Constipation Temazepam (Restoril) 15 mg PO HS PRN PRN Reason: INSOMNIA Allergies/Adverse Reactions: Allergies Allergy/AdvReac Type Severity Reaction Status Date / Time No Known Allergies AdvReac Unknown Uncoded 02/06/17 08:40 Physical Exam Vital signs: Vital Signs 10/07/17 20:00 10/07/17 23:46 10/08/17 04:00 Temperature 98.1 F 98.5 F Pulse Rate 85 73 78 Respiratory Rate 16 18 17 Blood Pressure 125/67 124/78 95/58 L Pulse Oximetry 100 99 98 10/08/17 07:29 10/08/17 11:47 10/08/17 16:00 Temperature 98.0 F 98.1 F 97.9 F Pulse Rate 62 69 72 Respiratory Rate 14 14 14 Blood Pressure 130/67 124/77 119/77 Pulse Oximetry 100 100 100 Intake & Output 10/07/17 10/08/17 10/08/17 18:59 06:59 18:59 Intake Total 1000 / 1000 800 / 800 800 / 800 Balance 1000 / 1000 800 / 800 800 / 800 Weight 121 kg Intake: IV 1000 / 1000 800 / 800 NS Inj 1,000 ML @ 70 mls/hr IV. 1000 / 1000 800 / 800 CONT .[id number] [facility] Rx#:[id number] Oral 800 / 800 Other: # Voids 1 2 Date of Last Bowel Movement 10/06/17 10/06/17 10/06/17 Weight On Admission 121 kg - Routine Neurological Exam alert, oriented. speech normal CN normal MOTOR 5/5 BUE and BLE sensory--decrease right hand only Objective Laboratory Results - last 24 hr 10/08/17 10/08/17 10/08/17 04:11 04:11 06:19 WBC 4.6 RBC 4.22 Hgb 11.1 L Hct 33.5 L MCV 79.2 L MCH 26.3 L MCHC 33.2 RDW 15.0 Plt Count 245 MPV 8.9 Neut % (Auto) 53.1 Lymph % (Auto) 34.7 [place] % (Auto) 8.7 H Eos % (Auto) 3.2 Baso % (Auto) 0.3 Neut # (Auto) 2.4 Lymph # (Auto) 1.6 [place] # (Auto) 0.4 Eos # (Auto) 0.1 Baso # (Auto) 0.0 WBC Differential . Differential Comment Auto diff final Sodium 142 Potassium 3.7 Chloride 108 H Carbon Dioxide 25.3 Anion Gap 9 BUN 7 Creatinine 0.66 Estimated GFR Greater than 89 POC Glucose 89 Random Glucose 90 Calcium 8.7 Review/Management - Diagnosis (1) TIA (transient ischemic attack) Code(s): G45.9 - Transient cerebral ischemic attack, unspecified Status: Acute Current Visit: Yes - Review/Management Plan: TERRA scheduled for tomorrow follow up hypercoagulation panel (1) TIA (transient ischemic attack) Qualifiers: Transient cerebral ischemia type: unspecified Qualified Code(s): G45.9 - Transient cerebral ischemic attack, unspecified
--- NOTE | 2017-10-08 17:54 | ECHRPT ---
Indication: CVA/TIA CONCLUSIONS The left ventricular systolic function is normal with an estimated ejection fraction in the range of 60-65%. Trace mitral valve regurgitation. There is trace tricuspid valve regurgitation. BP: / HR: Rhythm: Sinus MEASUREMENTS (Male / Female) Normal Values Technical Quality:Good 2D ECHO LV Diastolic Diameter PLAX 4.5 cm 4.2 - 5.9 / 3.9 - 5.3 cm LV Systolic Diameter PLAX 3.2 cm IVS Diastolic Thickness 1.0 cm 0.6 - 1.0 / 0.6 - 0.9 cm LVPW Diastolic Thickness 1.0 cm 0.6 - 1.0 / 0.6 - 0.9 cm LV Relative Wall Thickness 0.4 RV Internal Dim ED PLAX 2.8 cm LVOT Diameter 2.3 cm LA Systolic Diameter LX 3.2 cm 3.0 - 4.0 / 2.7 - 3.8 cm LV Ejection Fraction MOD 4C 69.5 % LV Ejection Fraction 4C AL 72.9 % M-MODE Aortic Root Diameter MM 2.1 cm LA Systolic Diameter MM 3.7 cm LA Ao Ratio MM 1.8 AV Cusp Separation MM 2.4 cm DOPPLER AV Peak Velocity 125.0 cm/s AV Peak Gradient 6.3 mmHg LVOT Peak Velocity 114.0 cm/s LVOT Peak Gradient 5.2 mmHg AV Area Cont Eq pk 3.8 cm MV Area PHT 4.4 cm Mitral E Point Velocity 98.7 cm/s Mitral A Point Velocity 61.2 cm/s Mitral E to A Ratio 1.6 LV E' Lateral Velocity 13.9 cm/s Mitral E to LV E' Lateral Ratio 7.1 LV E' Septal Velocity 8.1 cm/s Mitral E to LV E' Septal Ratio 12.2 TR Peak Velocity 236.0 cm/s TR Peak Gradient 22.3 mmHg Right Atrial Pressure 10.0 mmHg Pulmonary Artery Systolic Pressu 32.3 mmHg Right Ventricular Systolic Press 32.3 mmHg PV Peak Velocity 89.6 cm/s PV Peak Gradient 3.2 mmHg FINDINGS LEFT VENTRICLE The left ventricular systolic function is normal with an estimated ejection fraction in the range of 60-65%. Normal left ventricular size. Wall thickness is normal. No regional wall motion abnormalities are present. Nonobstructive prominent basal hypertrophy is present consistent with sigmoid septum. RIGHT VENTRICLE Normal right ventricular size and systolic function. LEFT ATRIUM The left atrial size is upper limits of normal. RIGHT ATRIUM The right atrial size is normal. ATRIAL SEPTUM Normal atrial septal thickness AORTA The aortic root and proximal ascending aorta are normal in size on limited imaging. MITRAL VALVE Structurally normal mitral valve. Trace mitral valve regurgitation. No mitral valve stenosis. AORTIC VALVE Trileaflet aortic valve. No aortic valve stenosis or regurgitation. TRICUSPID VALVE Structurally normal tricuspid valve. There is trace tricuspid valve regurgitation. The estimated pulmonary arterial pressure is 32.3 mmHg. PULMONARY VALVE No pulmonary valve regurgitation or stenosis. VESSELS The inferior vena cava is normal in size. PERICARDIUM No pericardial effusion. Maximino Hercules DO (Electronically Signed) Final Date:08 October 2017 17:53
[2017-10-09] MEDS: Sod Chloride 0.9% Inj 1,000 ML IV.CONT SCH ×3 (01:56→23:53)
[2017-10-09 02:57] LABS: Amphetamine Screen,Urine Neg (Neg); Barbiturate Screen,Urine Neg (Neg); Cannabinoid Screen,Urine Neg (Neg); Cocaine Screen,Urine Neg (Neg)
[2017-10-09 03:14] LABS: Opiate Screen,Urine Neg (Neg)
[2017-10-09] MEDS: Senna/Docusate Sodium 8.6/50 MG Tablet PO SCH ×2 (08:53→21:47)
[2017-10-09] MEDS: Aspirin 325 MG Tablet PO SCH (12:00)
--- NOTE | 2017-10-09 14:12 | P.PNIM ---
Subjective Interval history: Patient says she is feeling all right. Improved lightheadedness. Denies any chest pain or shortness of breath. Pending transesophageal echocardiogram Physical Exam Vital signs: Vital Signs 10/08/17 16:00 10/08/17 20:00 10/09/17 00:00 Temperature 97.9 F 98.0 F Pulse Rate 72 82 79 Respiratory Rate 14 17 21 Blood Pressure 119/77 134/84 121/75 Pulse Oximetry 100 99 100 10/09/17 04:00 10/09/17 07:52 10/09/17 12:00 Temperature 97.9 F 98.1 F 98.0 F Pulse Rate 71 71 78 Respiratory Rate 18 14 16 Blood Pressure 112/56 L 115/71 138/81 Pulse Oximetry 100 100 100 Intake & Output 10/08/17 10/09/17 10/09/17 18:59 06:59 18:59 Intake Total 800 / 800 200 / 200 Balance 800 / 800 200 / 200 Intake: IV 800 / 800 200 / 200 NS Inj 1,000 ML @ 70 mls/hr IV. 800 / 800 200 / 200 CONT .[id number] [facility] Rx#:[id number] Oral 0 / 0 Other: # Voids 4 2 Date of Last Bowel Movement 10/06/17 10/08/17 10/08/17 Narrative: GENERAL: She is sitting in bed. Appears comfortable. Obese. Alert and oriented 3. Exam unchanged SKIN: Warm and dry. HEAD: Normocephalic. EYES: No scleral icterus. No injection or drainage. NECK: Supple, trachea midline. No JVD. CARDIOVASCULAR: Regular rate and rhythm without murmurs, gallops, or rubs. RESPIRATORY: Breath sounds equal bilaterally. No accessory muscle use. GASTROINTESTINAL: Abdomen soft, non-tender, nondistended. MUSCULOSKELETAL: No cyanosis, or edema. BACK: Nontender without obvious deformity. No CVA tenderness. Results - Labs CBC & Chem 7: 10/08/17 04:11 10/08/17 04:11 Laboratory Results - last 24 hr 10/08/17 10/08/17 10/09/17 18:40 21:15 02:00 POC Glucose 78 137 H Cortisol Urine Opiates Screen Neg Ur Barbiturates Screen Neg Ur Amphetamines Screen Neg U Benzodiazepines Scrn Neg Urine Cocaine Screen Neg U Cannabinoids Screen Neg 07/10/09/17 10/09/17 03:49 06:36 13:11 POC Glucose 93 93 Cortisol 9.6 Urine Opiates Screen Ur Barbiturates Screen Ur Amphetamines Screen U Benzodiazepines Scrn Urine Cocaine Screen U Cannabinoids Screen Assessment and Plan - Plan //Syncope/? seizure/? TIA Head CT, head MRI, head and neck CTA and cervical spine CT all negative for acute process Neurology consulted, appreciate recommendations Cannot rule out seizure activity, EEG pending = We will check morning cortisol. Echo pendingdelayed today. Will be done tomorrow. Neurology and cardiology following. = 10/09. Pending transesophageal echocardiogram. Appreciate neurology and cardiology assistance. //Prediabetes Sliding-scale insulin Monitor blood glucose Discharge Planning: Pending cardiology and neurology clearance.
--- NOTE | 2017-10-09 14:46 | P.PNCA ---
Subjective Interval history: alert in nad Physical Exam Vital signs: Vital Signs 10/08/17 16:00 10/08/17 20:00 10/09/17 00:00 Temperature 97.9 F 98.0 F Pulse Rate 72 82 79 Respiratory Rate 14 17 21 Blood Pressure 119/77 134/84 121/75 Pulse Oximetry 100 99 100 10/09/17 04:00 10/09/17 07:52 10/09/17 12:00 Temperature 97.9 F 98.1 F 98.0 F Pulse Rate 71 71 78 Respiratory Rate 18 14 16 Blood Pressure 112/56 L 115/71 138/81 Pulse Oximetry 100 100 100 Intake & Output 10/08/17 10/09/17 10/09/17 18:59 06:59 18:59 Intake Total 800 / 800 200 / 200 Balance 800 / 800 200 / 200 Intake: IV 800 / 800 200 / 200 NS Inj 1,000 ML @ 70 mls/hr IV. 800 / 800 200 / 200 CONT .[id number] [facility] Rx#:[id number] Oral 0 / 0 Other: # Voids 4 2 Date of Last Bowel Movement 10/06/17 10/08/17 10/08/17 Assessment and Plan - Assessment (1) TIA (transient ischemic attack) Code(s): G45.9 - Transient cerebral ischemic attack, unspecified Status: Acute - Plan TERRA schedule for 930 am 10/10/17, d/w patient and nurse and Laura in echo (1) TIA (transient ischemic attack) Qualifiers: Transient cerebral ischemia type: unspecified Qualified Code(s): G45.9 - Transient cerebral ischemic attack, unspecified
[2017-10-10] MEDS ORDERED: Sodium Chlor 0.9% Inj 500 ML IV.SIG SCH (10:00)
[2017-10-10] MEDS ORDERED: Chlorhexidine Gluconate 2% 1 Pack (2 Cloths) TOPICAL SCH (10:00)
[2017-10-10] MEDS ORDERED: Metoprolol Tartrate 25 MG Tablet PO SCH (10:00)
[2017-10-10] MEDS ORDERED: Lidocaine PF 1% Inj 5 ML Syringe INFILTRATN ONE (12:00)
[2017-10-10] MEDS: Aspirin 325 MG Tablet PO SCH (12:23)
[2017-10-10] MEDS: Senna/Docusate Sodium 8.6/50 MG Tablet PO SCH (12:24)
[2017-10-10 12:27] LABS: Factor V Leiden Mutation Negative (Negative)
--- NOTE | 2017-10-10 13:08 | ECHRPT ---
Indication: TIA CONCLUSIONS 1.) Normal lv size and wall thickness, ef=60%, trace mr 2.) negative saline contrast bubble study 3.) left atrial appendage wnl BP: / HR: Rhythm: Sinus Technical Quality:Good Medications Complications Proc. Components Todd Sloan MD, FACC, FSCAI (Electronically Signed) Final Date:10 October 2017 13:07
--- NOTE | 2017-10-10 13:59 | P.PNIM ---
Subjective Interval history: Patient says he is feeling right. Feels like going home. Denies any chest pain shortness of breath. Denies nausea or vomiting. Denies unilateral weakness. Patient reports a one-week history of itching, slight discharge, dysuria or rather burning after urination. She does report having a yeast infection in the past. Denies sexual activity. Physical Exam Vital signs: Vital Signs 10/09/17 16:00 10/09/17 19:50 10/10/17 00:00 Temperature 98.0 F 98.1 F 98 F Pulse Rate 62 78 72 Respiratory Rate 14 20 20 Blood Pressure 100/56 L 131/73 121/86 Pulse Oximetry 100 100 99 10/10/17 04:00 10/10/17 12:00 Temperature 97.8 F 98.0 F Pulse Rate 79 66 Respiratory Rate 20 16 Blood Pressure 103/60 125/79 Pulse Oximetry 99 100 Intake & Output 10/09/17 10/10/17 10/10/17 18:59 06:59 18:59 Intake Total 1840 / 1840 Balance 1840 / 1840 Weight 120.8 kg Intake: IV 1000 / 1000 NS Inj 1,000 ML @ 70 mls/hr IV. 1000 / 1000 CONT .[id number] [facility] Rx#:[id number] Oral 840 / 840 Other: # Voids 3 2 Date of Last Bowel Movement 10/08/17 10/09/17 10/09/17 # Bowel Movements 1 Narrative: GENERAL: She is sitting in bed. Appears comfortable. Obese. Alert and oriented 3. SKIN: Warm and dry. HEAD: Normocephalic. EYES: No scleral icterus. No injection or drainage. NECK: Supple, trachea midline. No JVD. CARDIOVASCULAR: Regular rate and rhythm without murmurs, gallops, or rubs. RESPIRATORY: Breath sounds equal bilaterally. No accessory muscle use. GASTROINTESTINAL: Abdomen soft, non-tender, nondistended. MUSCULOSKELETAL: No cyanosis, or edema. Urogenital. Examined with nurse at bedside. No external rashes or obvious discharge. Did not perform pelvic exam. BACK: Nontender without obvious deformity. No CVA tenderness. Results - Labs CBC & Chem 7: 10/08/17 04:11 10/08/17 04:11 Laboratory Results - last 24 hr 10/07/17 10/07/17 10/09/17 15:50 15:50 17:41 Factor V Leiden Mutat Negative Factor V Leiden Interp . Fact V Leiden Review By Milana haynes m.d. POC Glucose 96 Anti-Cardiolipin IgG Ab <9.4 Anti-Cardiolipin IgM Ab <9.4 10/09/17 10/10/17 23:49 07:53 Factor V Leiden Mutat Factor V Leiden Interp Fact V Leiden Review By POC Glucose 108 85 Anti-Cardiolipin IgG Ab Anti-Cardiolipin IgM Ab Assessment and Plan - Plan //Syncope/? seizure/? TIA Head CT, head MRI, head and neck CTA and cervical spine CT all negative for acute process Neurology consulted, appreciate recommendations Cannot rule out seizure activity, EEG pending = We will check morning cortisol. Echo pendingdelayed today. Will be done tomorrow. Neurology and cardiology following. = 10/09. Pending transesophageal echocardiogram. Appreciate neurology and cardiology assistance. = 10/10. Unremarkable transesophageal echocardiogram. Only trace MR. Discharge home on aspirin 325 mg daily. Follow-up with Dr. Pichardo neurologist as outpatient. Discussed with Dr. Pichardo. //Vaginal itching. Patient examined with nurse at bedside. No rashes. Urinalysis with no signs of infection. Given history have recommended patient try Monistat 7 and follow with gynecology as outpatient as able.. //Prediabetes Sliding-scale insulin Monitor blood glucose Discharge Planning: Discussed with neurology. Discharge home on aspirin daily. Follow with neurology as outpatient.
--- NOTE | 2017-10-10 14:06 | P.DS ---
Date of admission: 10/06/17 23:38 Primary care physician: UNKNOWN Brief History from admission: 27-year-old female with a past medical history significant for prediabetes presents to the emergency department after suffering a syncopal event. The event was unwitnessed and the patient was found by her brother on the kitchen floor. It is unclear if there was any seizure-like activity prior to her being unresponsive. The patient's mother reports that the patient was unresponsive for approximately 5 minutes and then she regained consciousness. The patient has no memory of the event. Following the event, the patient complained of right-sided chest pain with numbness of her right upper and lower extremities. Since her arrival in the emergency department the numbness has slowly subsided and is now only present in the fingers of her right hand. Her chest pain has completely resolved. The patient denies any shortness of breath. No abdominal pain. No nausea/vomiting/diarrhea. No fevers/chills. DS: Medications - Discharge Medications Prescriptions: aspirin 325 mg PO DAILY #30 tab DS: Summary Hospital Course: Imaging performed as below, with no acute findings. Neurology consulted. Hypercoagulable workup ordered and still pending. Cardiology consulted for a transesophageal echocardiogram which is unremarkable except for mild MR. Please see report. Patient will be discharged home on aspirin 325 mg daily. Follow-up with neurology as outpatient to go over hypercoagulable workup Patient reported vaginal itching prior to admission which has continued. Superficial exam without rashes. Patient advised to use Monistat 7 as outpatient and follow-up with gynecology For problem based summary from most recent progress note, please see below. //Syncope/? seizure/? TIA Head CT, head MRI, head and neck CTA and cervical spine CT all negative for acute process Neurology consulted, appreciate recommendations Cannot rule out seizure activity, EEG pending = We will check morning cortisol. Echo pendingdelayed today. Will be done tomorrow. Neurology and cardiology following. = 10/09. Pending transesophageal echocardiogram. Appreciate neurology and cardiology assistance. = 10/10. Unremarkable transesophageal echocardiogram. Only trace MR. Discharge home on aspirin 325 mg daily. Follow-up with Dr. Pichardo neurologist as outpatient. Discussed with Dr. Pichardo. //Vaginal itching. Patient examined with nurse at bedside. No rashes. Urinalysis with no signs of infection. Given history have recommended patient try Monistat 7 and follow with gynecology as outpatient as able.. //Prediabetes Sliding-scale insulin Monitor blood glucose Discharge Planning: Discussed with neurology. Discharge home on aspirin daily. Follow with neurology as outpatient. - Time Spent with Patient Total time spent providing and/or coordinating discharge services: - Quality: Stroke Last date observed well: 10/06/17 Last time observed well: 21:30 - Quality: VTE Deep Vein Thrombosis/Pulmonary Embolism Present on Admission: No Exam Vital signs: Vital Signs 10/09/17 16:00 10/09/17 19:50 10/10/17 00:00 Temperature 98.0 F 98.1 F 98 F Pulse Rate 62 78 72 Respiratory Rate 14 20 20 Blood Pressure 100/56 L 131/73 121/86 Pulse Oximetry 100 100 99 10/10/17 04:00 10/10/17 12:00 Temperature 97.8 F 98.0 F Pulse Rate 79 66 Respiratory Rate 20 16 Blood Pressure 103/60 125/79 Pulse Oximetry 99 100 Intake & Output 10/09/17 10/10/17 10/10/17 18:59 06:59 18:59 Intake Total 1840 / 1840 Balance 1840 / 1840 Weight 120.8 kg Intake: IV 1000 / 1000 NS Inj 1,000 ML @ 70 mls/hr IV. 1000 / 1000 CONT .[id number] [facility] Rx#:[id number] Oral 840 / 840 Other: # Voids 3 2 Date of Last Bowel Movement 10/08/17 10/09/17 10/09/17 # Bowel Movements 1 Results Procedures completed during hospitalization: Transesophageal echocardiogram Labs on day of discharge: Labs from last 24 hours 10/10/17 10/09/17 10/09/17 07:53 23:49 17:41 Factor V Leiden Mutat Factor V Leiden Interp Fact V Leiden Review By POC Glucose 85 108 96 Anti-Cardiolipin IgG Ab Anti-Cardiolipin IgM Ab 10/07/17 10/07/17 15:50 15:50 Factor V Leiden Mutat Negative Factor V Leiden Interp . Fact V Leiden Review By Milana haynes m.d. POC Glucose Anti-Cardiolipin IgG Ab <9.4 Anti-Cardiolipin IgM Ab <9.4 - Impressions ITS Impressions Chest X-Ray 10/06/17 22:22 CONCLUSION: The lungs are clear. Head CT 10/06/17 22:22 CONCLUSION: 1. Negative stroke alert CT brain. Head CTA 10/06/17 22:22 CONCLUSION: 1. Negative CTA of the [place] CTA 10/06/17 22:22 CONCLUSION: 1. Negative carotid CTA. Cervical Spine CT 10/06/17 22:49 CONCLUSION: 1. Straightening of the cervical lordosis without evidence of compression deformity or spondylolisthesis. 2. Presence or absence of disc disease cannot be assessed at C4-C7 due to patient's body habitus. Head MRI 10/06/17 22:59 CONCLUSION: 1. Unremarkable MRI of the brain. Negative for infarct. Findings discussed by telephone with Dr. Pichardo. Discharge Plan - Discharge Disposition Patient Disposition: 01 Discharge Home - Discharge Condition Condition: Stable - Discharge Order Discharge Orders: Discharge Order (Routine); Ordered 10/10/17 Ordered By: Zach Foster - Physicians Team Primary Care Provider: UNKNOWN, Attending Provider: Zach Foster Other Providers: Ever Hwang MD ; Todd Sloan MD
[2017-10-10 15:54] LABS: Dil Russell Viper Venom Conf ( POSITIVE (NEGATIVE); Dil Russell Viper Venom Time M CORRECTED (CORRECTED); Lupus Anticoagulant PTT Screen 39 seconds (< OR = 40)
[2017-10-13 11:57] LABS: Protein C Antigen 83 % (70-150); Protein S Antigen Free 69 % (50 - 160)
== END 2017-10-10 14:44 | disposition home or self-care (01) ==
LOC: NEPFCDU 22:13 → NEDA 22:13 → NEPC 22:13 → NEDH 10-07 04:10 → NEPFCDU 10-07 14:45
PROVIDERS: ADMIT Internal Medicine; ATTEND Internal Medicine
DX: R20.0 Anesthesia of skin; R73.03 Prediabetes; G45.9 Transient cerebral ischemic attack, unspecified; R07.9 Chest pain, unspecified; Z77.22 Contact with and (suspected) exposure to environmental tobacco smoke (acute) (chronic); G92 Toxic encephalopathy; R55 Syncope and collapse